=== PATIENT | male | born 1985 | race American Indian/Alaskan Native ===

== ENCOUNTER 2018-08-08 15:52 | Emergency (ER) | payer SELFPAY ==
[2018-08-08] MEDS ORDERED: Erythromycin Base 0.5% Ophth Oint 3.5 GM Tube ONE (16:30)
[2018-08-08] MEDS ORDERED: Tetracaine 0.5% 2 ML Bottle ONE (16:30)
[2018-08-08] MEDS ORDERED: Distilled Water Ophth Irrig Soln 120 ML Bottle ONE (16:30)
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
== END 2018-08-08 16:43 ==
LOC: LB.ED 15:52
DX: T26.12XA Burn of cornea and conjunctival sac, left eye, initial encounter (principal); T26.11XA Burn of cornea and conjunctival sac, right eye, initial encounter
CPT/HCPCS: 99284; A9270-GY